=== PATIENT | female | born 1975 | race Caucasian/White ===

== ENCOUNTER 2020-06-15 12:17 | Emergency (ER) | payer OTHER, SELFPAY ==
[2020-06-15] VITALS (30 sets, daily range): BP systolic 94–117; BP diastolic 50–65; PULSE 84–102; RESP 14–64; TEMP 36.8; O2SAT 90–98; BMI 17.8
--- NOTE | 2020-06-15 13:00 | ED_ITS ---
HPI - Psych <Meenakshi High DO - Last Filed: 06/17/20 07:48> General Chief Complaint: Psychiatric Symptoms Stated Complaint: TOOK A BUNCH OF PILLS AND DRUGS Time Seen by Provider: 06/15/20 12:46 Source: patient Mode of arrival: Wheelchair Limitations: no limitations History of Present Illness HPI Narrative: This is a 44-year-old female who states she took a bunch of pills drugs prior to arrival. She states she used methamphetamine at the local gas station and just before coming into the ER took a large number of pills in her car. She is on sure of the exact timing as she states that she has been very confused lately secondary to her schizophrenia and being unaware of time passing. She states she took an entire bottle of Benadryl, Seroquel and Minipress. She does have trazodone, Benadryl and naltrexone which she states she did not take the naltrexone. She does not have a bottle of Seroquel with her. Patient states she is schizophrenic, she states the voices are present hav e been telling her to hurt herself. She has attempted to harm herself in the past. She states she took the pills to try to stop the voices. She states she does not wish to right now but she did earlier. She states she also has a history of shaking and is in process of potentially being diagnosed with Parkinson's. 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 She does use tobacco, she denies alcohol. She denies other illicit drugs. Related Data Allergies Allergy/AdvReac Type Severity Reaction Status Date / Time Sulfa (Sulfonamide Allergy Verified 06/15/20 12:34 Antibiotics) Review of Systems <Meenakshi High DO - Last Filed: 06/17/20 07:48> Review of Systems ROS Unobtainable: All systems reviewed & are unremarkable except as noted in HPI and below Patient History <Meenakshi High DO - Last Filed: 06/17/20 07:48> Medical History (Updated 06/16/20 @ 17:39 by Betty Lundy DO) Schizophrenia Social History Smoking Status: Current every day smoker Smoking Status: Current every day smoker alcohol intake frequency: holidays/special occasions only Substance Use Type: methamphetamine Exam <Meenakshi High DO - Last Filed: 06/17/20 07:48> Narrative Exam Narrative: GENERAL: Alert and oriented x three, thin female in moderate distress. Patient appears anxious. HEENT: Head normocephalic, atraumatic, EOMI, pupils reactive, face symmetric, moist mucous membranes NECK: Supple, full range of motion CARDIOVASCULAR: Regular rate and rhythm without murmurs, rubs or gallops. RESPIRATORY: Breath sounds equal bilaterally, no wheezes rales or rhonchi. No tachypnea accessory muscle use. ABDOMEN: Soft, nontender. Normoactive bowel sounds all 4 quadrants. No guarding or rebound, rigidity, no mass : No CVA tenderness EXTREMITIES: Normal range of motion, no clubbing or edema. Neurovascularly intact NEUROLOGICAL: Cranial nerves II through XII grossly intact. Moving all extremities. Mild tremor. SKIN: Warm, dry, no petechiae, no rashes or lesions. Initial Vital Signs Initial Vital Signs: Vital Signs Temperature 98.3 F 06/15/20 12:35 Pulse Rate 100 H 06/15/20 12:35 Respiratory Rate 15 06/15/20 12:35 Blood Pressure 117/65 06/15/20 12:35 Pulse Oximetry 98 06/15/20 12:35 <Fidel Galan, DO - Last Filed: 06/16/20 21:07> Initial Vital Signs Initial Vital Signs: Vital Signs Temperature 98.3 F 06/15/20 12:35 Pulse Rate 100 H 06/15/20 12:35 Respiratory Rate 15 06/15/20 12:35 Blood Pressure 117/65 06/15/20 12:35 Pulse Oximetry 98 06/15/20 12:35 <Betty Lundy, DO - Last Filed: 06/16/20 17:39> Initial Vital Signs Initial Vital Signs: Vital Signs Temperature 98.3 F 06/15/20 12:35 Pulse Rate 100 H 06/15/20 12:35 Respiratory Rate 15 06/15/20 12:35 Blood Pressure 117/65 06/15/20 12:35 Pulse Oximetry 98 06/15/20 12:35 Course <Meenakshi High DO - Last Filed: 06/17/20 07:48> Orders Ordered: Discontinued Medications Charcoal (Activated Charcoal 50 Gm/240 Ml) 50 gm PO NOW ONE Stop: 06/15/20 12:56 Last Admin: 06/15/20 13:39 Dose: Not Given Documented by: REYNA Charcoal/Sorbitol (Activated Charcoal/Sorbit 50 Gm/240 Ml) 50 gm PO NOW ONE Stop: 06/15/20 12:44 Last Admin: 06/15/20 13:39 Dose: 50 gm Documented by: REYNA Sodium Chloride (Normal Saline 0.9%) 1,000 mls @ 150 mls/hr IV CONT JAYDEN Last Infusion: 06/15/20 18:25 Dose: 0 mls/hr Documented by: Admin: 06/15/20 15:14 Dose: 150 mls/hr Documented by: ROBERT Sodium Chloride (Normal Saline 0.9%) 1,000 mls @ 1,000 mls/hr IV BOLUS ONE Stop: 06/15/20 17:22 Last Infusion: 06/15/20 22:02 Dose: 0 mls/hr Documented by: Admin: 06/15/20 19:44 Dose: 1,000 mls/hr Documented by: JIMMY Ceftriaxone Sodium/Dextrose (Rocephin) 1 gm in 50 mls @ 100 mls/hr IV NOW ONE Stop: 06/15/20 20:04 Last Infusion: 06/15/20 20:28 Dose: 0 mls/hr Documented by: Admin: 06/15/20 19:45 Dose: 100 mls/hr Documented by: JIMMY Nicotine (Nicotine 21 Mg Patch) 21 mg TOP NOW ONE Stop: 06/15/20 15:20 Last Admin: 06/15/20 15:57 Dose: 21 mg Documented by: BTONER Reevaluation(s) Time: 16:15 Reevaluation #2: Patient sleeping but easily awakens to verbal stimuli, BP in pressures in 90's. Time: 18:30 Consultations Consultation #1: Poison control. Discussed medications we have available, dosages patient is believed to have ingested and time frame. EKG and labs reviewed, vitals patient has had some hypotension in department. Time: 16:14 Vital Signs Vital signs: Vital Signs - 8 hr 06/16/20 13:27 06/16/20 16:53 Pulse Rate 86 82 Respiratory Rate 20 18 Blood Pressure 110/54 L 110/54 L Pulse Oximetry 98 95 <Fidel Adama, DO - Last Filed: 06/16/20 21:07> Course Course Narrative: Patient received in sign-out from Dr. High. I performed an independent history and physical and have no significant additions. The patient is resting comfortably and awaiting social Work in the morning Orders Ordered: Discontinued Medications Charcoal (Activated Charcoal 50 Gm/240 Ml) 50 gm PO NOW ONE Stop: 06/15/20 12:56 Last Admin: 06/15/20 13:39 Dose: Not Given Documented by: REYNA Charcoal/Sorbitol (Activated Charcoal/Sorbit 50 Gm/240 Ml) 50 gm PO NOW ONE Stop: 06/15/20 12:44 Last Admin: 06/15/20 13:39 Dose: 50 gm Documented by: OTILIOO Sodium Chloride (Normal Saline 0.9%) 1,000 mls @ 150 mls/hr IV CONT JAYDEN Last Infusion: 06/15/20 18:25 Dose: 0 mls/hr Documented by: Admin: 06/15/20 15:14 Dose: 150 mls/hr Documented by: NIKOTEM Sodium Chloride (Normal Saline 0.9%) 1,000 mls @ 1,000 mls/hr IV BOLUS ONE Stop: 06/15/20 17:22 Last Infusion: 06/15/20 22:02 Dose: 0 mls/hr Documented by: Admin: 06/15/20 19:44 Dose: 1,000 mls/hr Documented by: MACKONETosin Ceftriaxone Sodium/Dextrose (Rocephin) 1 gm in 50 mls @ 100 mls/hr IV NOW ONE Stop: 06/15/20 20:04 Last Infusion: 06/15/20 20:28 Dose: 0 mls/hr Documented by: Admin: 06/15/20 19:45 Dose: 100 mls/hr Documented by: JIMMY Nicotine (Nicotine 21 Mg Patch) 21 mg TOP NOW ONE Stop: 06/15/20 15:20 Last Admin: 06/15/20 15:57 Dose: 21 mg Documented by: BTONER Vital Signs Vital signs: Vital Signs - 8 hr 06/16/20 13:27 06/16/20 16:53 Pulse Rate 86 82 Respiratory Rate 20 18 Blood Pressure 110/54 L 110/54 L Pulse Oximetry 98 95 <Betty Lundy DO - Last Filed: 06/16/20 17:39> Orders Ordered: Discontinued Medications Charcoal (Activated Charcoal 50 Gm/240 Ml) 50 gm PO NOW ONE Stop: 06/15/20 12:56 Last Admin: 06/15/20 13:39 Dose: Not Given Documented by: REYNA Charcoal/Sorbitol (Activated Charcoal/Sorbit 50 Gm/240 Ml) 50 gm PO NOW ONE Stop: 06/15/20 12:44 Last Admin: 06/15/20 13:39 Dose: 50 gm Documented by: REYNA Sodium Chloride (Normal Saline 0.9%) 1,000 mls @ 150 mls/hr IV CONT JAYDEN Last Infusion: 06/15/20 18:25 Dose: 0 mls/hr Documented by: Admin: 06/15/20 15:14 Dose: 150 mls/hr Documented by: NIKOTEM Sodium Chloride (Normal Saline 0.9%) 1,000 mls @ 1,000 mls/hr IV BOLUS ONE Stop: 06/15/20 17:22 Last Infusion: 06/15/20 22:02 Dose: 0 mls/hr Documented by: Admin: 06/15/20 19:44 Dose: 1,000 mls/hr Documented by: JIMMY Ceftriaxone Sodium/Dextrose (Rocephin) 1 gm in 50 mls @ 100 mls/hr IV NOW ONE Stop: 06/15/20 20:04 Last Infusion: 06/15/20 20:28 Dose: 0 mls/hr Documented by: Admin: 06/15/20 19:45 Dose: 100 mls/hr Documented by: BTONER Nicotine (Nicotine 21 Mg Patch) 21 mg TOP NOW ONE Stop: 06/15/20 15:20 Last Admin: 06/15/20 15:57 Dose: 21 mg Documented by: BTONER Vital Signs Vital signs: Vital Signs - 8 hr 06/16/20 13:27 06/16/20 16:53 Pulse Rate 86 82 Respiratory Rate 20 18 Blood Pressure 110/54 L 110/54 L Pulse Oximetry 98 95 MDM - Psych <Meenakshi High DO - Last Filed: 06/17/20 07:48> Lab Data Attestation: I reviewed the patient's lab results. Result diagrams: 06/15/20 14:45 06/15/20 14:45 Labs: Lab Results 06/15/20 06/15/20 06/15/20 Range/Units 12:57 12:57 14:45 WBC 13.4 H (4.5-11.0) X10^3/uL RBC 4.14 (4.0-5.2) X10^6/uL Hgb 9.6 L (12.0-16.0) g/dL Hct 30.7 L (36-46) % MCV 74.3 L (80-100) fL MCH 23.1 L (26-34) PG MCHC 31.1 (30-36) % RDW 19.8 H (11.6-14.8) % Plt Count 371 (150-400) X10^3/uL Neut % (Auto) 69.7 (50-75) % Lymph % (Auto) 21.2 L (25-40) % [place] % (Auto) 6.1 (3-14) % Eos % (Auto) 2.1 (2-4) % Baso % (Auto) 0.9 (0-2) % Neut # (Auto) 9400 H (2131-0372) /uL Lymph # (Auto) 2900 (9181-8096) /uL [place] # (Auto) 800 (0-900) /uL Eos # (Auto) 300 (0-450) /uL Baso # (Auto) 100 (0-100) /uL Sodium (137-145) mmol/L Potassium (3.4-5.1) mmol/L Chloride (98-107) mmol/L Carbon Dioxide (22-32) mmol/L BUN (7-17) mg/dL Creatinine (0.52-1.04) mg/dL Estimated GFR (>60) mL/min BUN/Creatinine Ratio (6-22) Glucose (70-100) mg/dL Lactate (0.7-2.1) mmol/L Calcium (8.4-10.2) mg/dL Total Bilirubin (0.2-1.3) mg/dL Conjugated Bilirubin (0.0-0.3) md/dL Unconjugated Bilirubin (0.0-1.1) mg/dL AST (14-36) IU/L ALT (<35) IU/L Alkaline Phosphatase (38-126) U/L Total Protein (6.3-8.2) g/dL Albumin (3.5-5.0) g/dL Globulin (1.7-4.1) g/dL Albumin/Globulin Ratio (1.0-2.8) Urine RBC 0-1/hpf (0-5/HPF) Urine WBC >100/hpf H (0-5/HPF) Ur Squamous Epith Cells 1-5 /hpf (0-5/HPF) Amorphous Sediment 1+ Urine Bacteria Many (>30) H (None) Urine Mucus 1+ H (Negative) Ur Culture Indicated? Specimen cultured Salicylates (<20) mg/dL U Opiates 300ng/mL cut Negative (Negative) Ur Oxycodone Screen Negative (Negative) Urine Methadone Screen Negative (Negative) Acetaminophen (10-30) ug/mL Ur Barbiturates Screen Negative (Negative) U Tricyclic Antidepress Negative (Negative) Ur Phencyclidine Scrn Negative (Negative) Ur Amphetamines Screen Positive H (Negative) U Methamphetamines Scrn Positive H (Negative) Ur MDMA Scrn (Ecstasy) Negative (Negative) U Benzodiazepines Scrn Negative (Negative) Urine Cocaine Screen Negative (Negative) U Marijuana (THC) Screen Negative (Negative) Ethyl Alcohol ( - 10) mg/dL COVID-19 PCR (Negative) 06/15/20 06/15/20 06/15/20 Range/Units 14:45 14:45 15:15 WBC (4.5-11.0) X10^3/uL RBC (4.0-5.2) X10^6/uL Hgb (12.0-16.0) g/dL Hct (36-46) % MCV (80-100) fL MCH (26-34) PG MCHC (30-36) % RDW (11.6-14.8) % Plt Count (150-400) X10^3/uL Neut % (Auto) (50-75) % Lymph % (Auto) (25-40) % [place] % (Auto) (3-14) % Eos % (Auto) (2-4) % Baso % (Auto) (0-2) % Neut # (Auto) (1695-2535) /uL Lymph # (Auto) (0680-2492) /uL [place] # (Auto) (0-900) /uL Eos # (Auto) (0-450) /uL Baso # (Auto) (0-100) /uL Sodium 139 (137-145) mmol/L Potassium 3.7 (3.4-5.1) mmol/L Chloride 107 (98-107) mmol/L Carbon Dioxide 26 (22-32) mmol/L BUN 14 (7-17) mg/dL Creatinine 0.59 (0.52-1.04) mg/dL Estimated GFR > 60.0 (>60) mL/min BUN/Creatinine Ratio 23.7 H (6-22) Glucose 86 (70-100) mg/dL Lactate 1.7 (0.7-2.1) mmol/L Calcium 9.0 (8.4-10.2) mg/dL Total Bilirubin 0.3 (0.2-1.3) mg/dL Conjugated Bilirubin 0.0 (0.0-0.3) md/dL Unconjugated Bilirubin 0.2 (0.0-1.1) mg/dL AST 16 (14-36) IU/L ALT 11 (<35) IU/L Alkaline Phosphatase 77 (38-126) U/L Total Protein 6.7 (6.3-8.2) g/dL Albumin 3.8 (3.5-5.0) g/dL Globulin 2.9 (1.7-4.1) g/dL Albumin/Globulin Ratio 1.3 (1.0-2.8) Urine RBC (0-5/HPF) Urine WBC (0-5/HPF) Ur Squamous Epith Cells (0-5/HPF) Amorphous Sediment Urine Bacteria (None) Urine Mucus (Negative) Ur Culture Indicated? Salicylates < 1.0 (<20) mg/dL U Opiates 300ng/mL cut (Negative) Ur Oxycodone Screen (Negative) Urine Methadone Screen (Negative) Acetaminophen < 10 L (10-30) ug/mL Ur Barbiturates Screen (Negative) U Tricyclic Antidepress (Negative) Ur Phencyclidine Scrn (Negative) Ur Amphetamines Screen (Negative) U Methamphetamines Scrn (Negative) Ur MDMA Scrn (Ecstasy) (Negative) U Benzodiazepines Scrn (Negative) Urine Cocaine Screen (Negative) U Marijuana (THC) Screen (Negative) Ethyl Alcohol < 10 ( - 10) mg/dL COVID-19 PCR Negative (Negative) Point of Care Testing Test Results Negative Urine Dip Bedside Urine Glucose Negative Bedside Urine Bilirubin + 1 Bedside Urine Ketone - Negative Urine Specific [place] 1.030 Bedside Urine Occult Blood + Bedside Urine pH 6.0 Bedside Urine Protein + 30 Bedside Urine Urobilinogen - Negative Bedside Urine Nitrite - Negative Bedside Urine Leukocytes ++ 125 Esterase ECG Data Attestation: I personally reviewed and interpreted this ECG as follows: Interpretation: S rhythm rate of 99, P are 140, QRS 98, QTC of 430. Nonspecific change. MDM Narrative Medical decision making narrative: Patient comes in with intentional ingestion of polysubstance including Seroquel, trazodone, prazosin, Benadryl and methamphetamine. Plan to monitor patient, poison control recommends 12 hours as we do not know if circles extended release or not. 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 Treatment would be fluids, benzos as needed, patient might need a sodium bicarb if QRS is greater than 110 and would recommend checking Mag and electrolytes and optimizing the if QTC is greater than 500. Patient has anemia, electrolytes are normal, Tylenol, salicylate and alcohol are negative with positive amphetamine and methamphetamines consistent with patient history Patient is covid negative. She is signed out to Dr. Galan while awaiting medical clearance. Social work has been consulted. <Fidel Galan, DO - Last Filed: 06/16/20 21:07> Lab Data Labs: Lab Results 06/15/20 06/15/20 06/15/20 Range/Units 12:57 12:57 14:45 WBC 13.4 H (4.5-11.0) X10^3/uL RBC 4.14 (4.0-5.2) X10^6/uL Hgb 9.6 L (12.0-16.0) g/dL Hct 30.7 L (36-46) % MCV 74.3 L (80-100) fL MCH 23.1 L (26-34) PG MCHC 31.1 (30-36) % RDW 19.8 H (11.6-14.8) % Plt Count 371 (150-400) X10^3/uL Neut % (Auto) 69.7 (50-75) % Lymph % (Auto) 21.2 L (25-40) % [place] % (Auto) 6.1 (3-14) % Eos % (Auto) 2.1 (2-4) % Baso % (Auto) 0.9 (0-2) % Neut # (Auto) 9400 H (3244-9883) /uL Lymph # (Auto) 2900 (9297-7647) /uL [place] # (Auto) 800 (0-900) /uL Eos # (Auto) 300 (0-450) /uL Baso # (Auto) 100 (0-100) /uL Sodium (137-145) mmol/L Potassium (3.4-5.1) mmol/L Chloride (98-107) mmol/L Carbon Dioxide (22-32) mmol/L BUN (7-17) mg/dL Creatinine (0.52-1.04) mg/dL Estimated GFR (>60) mL/min BUN/Creatinine Ratio (6-22) Glucose (70-100) mg/dL Lactate (0.7-2.1) mmol/L Calcium (8.4-10.2) mg/dL Total Bilirubin (0.2-1.3) mg/dL Conjugated Bilirubin (0.0-0.3) md/dL Unconjugated Bilirubin (0.0-1.1) mg/dL AST (14-36) IU/L ALT (<35) IU/L Alkaline Phosphatase (38-126) U/L Total Protein (6.3-8.2) g/dL Albumin (3.5-5.0) g/dL Globulin (1.7-4.1) g/dL Albumin/Globulin Ratio (1.0-2.8) Urine RBC 0-1/hpf (0-5/HPF) Urine WBC >100/hpf H (0-5/HPF) Ur Squamous Epith Cells 1-5 /hpf (0-5/HPF) Amorphous Sediment 1+ Urine Bacteria Many (>30) H (None) Urine Mucus 1+ H (Negative) Ur Culture Indicated? Specimen cultured Salicylates (<20) mg/dL U Opiates 300ng/mL cut Negative (Negative) Ur Oxycodone Screen Negative (Negative) Urine Methadone Screen Negative (Negative) Acetaminophen (10-30) ug/mL Ur Barbiturates Screen Negative (Negative) U Tricyclic Antidepress Negative (Negative) Ur Phencyclidine Scrn Negative (Negative) Ur Amphetamines Screen Positive H (Negative) U Methamphetamines Scrn Positive H (Negative) Ur MDMA Scrn (Ecstasy) Negative (Negative) U Benzodiazepines Scrn Negative (Negative) Urine Cocaine Screen Negative (Negative) U Marijuana (THC) Screen Negative (Negative) Ethyl Alcohol ( - 10) mg/dL COVID-19 PCR (Negative) 06/15/20 06/15/20 06/15/20 Range/Units 14:45 14:45 15:15 WBC (4.5-11.0) X10^3/uL RBC (4.0-5.2) X10^6/uL Hgb (12.0-16.0) g/dL Hct (36-46) % MCV (80-100) fL MCH (26-34) PG MCHC (30-36) % RDW (11.6-14.8) % Plt Count (150-400) X10^3/uL Neut % (Auto) (50-75) % Lymph % (Auto) (25-40) % [place] % (Auto) (3-14) % Eos % (Auto) (2-4) % Baso % (Auto) (0-2) % Neut # (Auto) (2535-6409) /uL Lymph # (Auto) (9034-5965) /uL [place] # (Auto) (0-900) /uL Eos # (Auto) (0-450) /uL Baso # (Auto) (0-100) /uL Sodium 139 (137-145) mmol/L Potassium 3.7 (3.4-5.1) mmol/L Chloride 107 (98-107) mmol/L Carbon Dioxide 26 (22-32) mmol/L BUN 14 (7-17) mg/dL Creatinine 0.59 (0.52-1.04) mg/dL Estimated GFR > 60.0 (>60) mL/min BUN/Creatinine Ratio 23.7 H (6-22) Glucose 86 (70-100) mg/dL Lactate 1.7 (0.7-2.1) mmol/L Calcium 9.0 (8.4-10.2) mg/dL Total Bilirubin 0.3 (0.2-1.3) mg/dL Conjugated Bilirubin 0.0 (0.0-0.3) md/dL Unconjugated Bilirubin 0.2 (0.0-1.1) mg/dL AST 16 (14-36) IU/L ALT 11 (<35) IU/L Alkaline Phosphatase 77 (38-126) U/L Total Protein 6.7 (6.3-8.2) g/dL Albumin 3.8 (3.5-5.0) g/dL Globulin 2.9 (1.7-4.1) g/dL Albumin/Globulin Ratio 1.3 (1.0-2.8) Urine RBC (0-5/HPF) Urine WBC (0-5/HPF) Ur Squamous Epith Cells (0-5/HPF) Amorphous Sediment Urine Bacteria (None) Urine Mucus (Negative) Ur Culture Indicated? Salicylates < 1.0 (<20) mg/dL U Opiates 300ng/mL cut (Negative) Ur Oxycodone Screen (Negative) Urine Methadone Screen (Negative) Acetaminophen < 10 L (10-30) ug/mL Ur Barbiturates Screen (Negative) U Tricyclic Antidepress (Negative) Ur Phencyclidine Scrn (Negative) Ur Amphetamines Screen (Negative) U Methamphetamines Scrn (Negative) Ur MDMA Scrn (Ecstasy) (Negative) U Benzodiazepines Scrn (Negative) Urine Cocaine Screen (Negative) U Marijuana (THC) Screen (Negative) Ethyl Alcohol < 10 ( - 10) mg/dL COVID-19 PCR Negative (Negative) Point of Care Testing Test Results Negative Urine Dip Bedside Urine Glucose Negative Bedside Urine Bilirubin + 1 Bedside Urine Ketone - Negative Urine Specific [place] 1.030 Bedside Urine Occult Blood + Bedside Urine pH 6.0 Bedside Urine Protein + 30 Bedside Urine Urobilinogen - Negative Bedside Urine Nitrite - Negative Bedside Urine Leukocytes ++ 125 Esterase <Betty Lundy, DO - Last Filed: 06/16/20 17:39> Lab Data Labs: Lab Results 06/15/20 06/15/20 06/15/20 Range/Units 12:57 12:57 14:45 WBC 13.4 H (4.5-11.0) X10^3/uL RBC 4.14 (4.0-5.2) X10^6/uL Hgb 9.6 L (12.0-16.0) g/dL Hct 30.7 L (36-46) % MCV 74.3 L (80-100) fL MCH 23.1 L (26-34) PG MCHC 31.1 (30-36) % RDW 19.8 H (11.6-14.8) % Plt Count 371 (150-400) X10^3/uL Neut % (Auto) 69.7 (50-75) % Lymph % (Auto) 21.2 L (25-40) % [place] % (Auto) 6.1 (3-14) % Eos % (Auto) 2.1 (2-4) % Baso % (Auto) 0.9 (0-2) % Neut # (Auto) 9400 H (6718-4795) /uL Lymph # (Auto) 2900 (1333-4491) /uL [place] # (Auto) 800 (0-900) /uL Eos # (Auto) 300 (0-450) /uL Baso # (Auto) 100 (0-100) /uL Sodium (137-145) mmol/L Potassium (3.4-5.1) mmol/L Chloride (98-107) mmol/L Carbon Dioxide (22-32) mmol/L BUN (7-17) mg/dL Creatinine (0.52-1.04) mg/dL Estimated GFR (>60) mL/min BUN/Creatinine Ratio (6-22) Glucose (70-100) mg/dL Lactate (0.7-2.1) mmol/L Calcium (8.4-10.2) mg/dL Total Bilirubin (0.2-1.3) mg/dL Conjugated Bilirubin (0.0-0.3) md/dL Unconjugated Bilirubin (0.0-1.1) mg/dL AST (14-36) IU/L ALT (<35) IU/L Alkaline Phosphatase (38-126) U/L Total Protein (6.3-8.2) g/dL Albumin (3.5-5.0) g/dL Globulin (1.7-4.1) g/dL Albumin/Globulin Ratio (1.0-2.8) Urine RBC 0-1/hpf (0-5/HPF) Urine WBC >100/hpf H (0-5/HPF) Ur Squamous Epith Cells 1-5 /hpf (0-5/HPF) Amorphous Sediment 1+ Urine Bacteria Many (>30) H (None) Urine Mucus 1+ H (Negative) Ur Culture Indicated? Specimen cultured Salicylates (<20) mg/dL U Opiates 300ng/mL cut Negative (Negative) Ur Oxycodone Screen Negative (Negative) Urine Methadone Screen Negative (Negative) Acetaminophen (10-30) ug/mL Ur Barbiturates Screen Negative (Negative) U Tricyclic Antidepress Negative (Negative) Ur Phencyclidine Scrn Negative (Negative) Ur Amphetamines Screen Positive H (Negative) U Methamphetamines Scrn Positive H (Negative) Ur MDMA Scrn (Ecstasy) Negative (Negative) U Benzodiazepines Scrn Negative (Negative) Urine Cocaine Screen Negative (Negative) U Marijuana (THC) Screen Negative (Negative) Ethyl Alcohol ( - 10) mg/dL COVID-19 PCR (Negative) 06/15/20 06/15/20 06/15/20 Range/Units 14:45 14:45 15:15 WBC (4.5-11.0) X10^3/uL RBC (4.0-5.2) X10^6/uL Hgb (12.0-16.0) g/dL Hct (36-46) % MCV (80-100) fL MCH (26-34) PG MCHC (30-36) % RDW (11.6-14.8) % Plt Count (150-400) X10^3/uL Neut % (Auto) (50-75) % Lymph % (Auto) (25-40) % [place] % (Auto) (3-14) % Eos % (Auto) (2-4) % Baso % (Auto) (0-2) % Neut # (Auto) (4256-7130) /uL Lymph # (Auto) (7664-9044) /uL [place] # (Auto) (0-900) /uL Eos # (Auto) (0-450) /uL Baso # (Auto) (0-100) /uL Sodium 139 (137-145) mmol/L Potassium 3.7 (3.4-5.1) mmol/L Chloride 107 (98-107) mmol/L Carbon Dioxide 26 (22-32) mmol/L BUN 14 (7-17) mg/dL Creatinine 0.59 (0.52-1.04) mg/dL Estimated GFR > 60.0 (>60) mL/min BUN/Creatinine Ratio 23.7 H (6-22) Glucose 86 (70-100) mg/dL Lactate 1.7 (0.7-2.1) mmol/L Calcium 9.0 (8.4-10.2) mg/dL Total Bilirubin 0.3 (0.2-1.3) mg/dL Conjugated Bilirubin 0.0 (0.0-0.3) md/dL Unconjugated Bilirubin 0.2 (0.0-1.1) mg/dL AST 16 (14-36) IU/L ALT 11 (<35) IU/L Alkaline Phosphatase 77 (38-126) U/L Total Protein 6.7 (6.3-8.2) g/dL Albumin 3.8 (3.5-5.0) g/dL Globulin 2.9 (1.7-4.1) g/dL Albumin/Globulin Ratio 1.3 (1.0-2.8) Urine RBC (0-5/HPF) Urine WBC (0-5/HPF) Ur Squamous Epith Cells (0-5/HPF) Amorphous Sediment Urine Bacteria (None) Urine Mucus (Negative) Ur Culture Indicated? Salicylates < 1.0 (<20) mg/dL U Opiates 300ng/mL cut (Negative) Ur Oxycodone Screen (Negative) Urine Methadone Screen (Negative) Acetaminophen < 10 L (10-30) ug/mL Ur Barbiturates Screen (Negative) U Tricyclic Antidepress (Negative) Ur Phencyclidine Scrn (Negative) Ur Amphetamines Screen (Negative) U Methamphetamines Scrn (Negative) Ur MDMA Scrn (Ecstasy) (Negative) U Benzodiazepines Scrn (Negative) Urine Cocaine Screen (Negative) U Marijuana (THC) Screen (Negative) Ethyl Alcohol < 10 ( - 10) mg/dL COVID-19 PCR Negative (Negative) Point of Care Testing Test Results Negative Urine Dip Bedside Urine Glucose Negative Bedside Urine Bilirubin + 1 Bedside Urine Ketone - Negative Urine Specific [place] 1.030 Bedside Urine Occult Blood + Bedside Urine pH 6.0 Bedside Urine Protein + 30 Bedside Urine Urobilinogen - Negative Bedside Urine Nitrite - Negative Bedside Urine Leukocytes ++ 125 Esterase MDM Narrative Medical decision making narrative: Patient signed out to me by Dr. Galan I have seen and evaluated patient myself. She is awake alert and oriented moved from room 1 to room 13. She remains suicidal but is voluntary. Evaluated by [employer]. Placed at [facility]. Discharge Plan Departure Patient Disposition: Xfer Psychiatric Hosp Clinical Impression: Overdose, Schizophrenia, Suicidal ideation <Fidel Galna DO - Last Filed: 06/16/20 21:07> Cosign ED Attending Cosignature Attestation: I was immediately available in the department for consultation. This documentation has been reviewed and I agree with assessment and plan. Supervised by Fidel Galan DO
[2020-06-15 13:16] LABS: Amorphous Sediment Urine 1+; RBC Urine 0-1/HPF (0-5/HPF); Squamous Epithelial Cell Urine 1-5 /HPF (0-5/HPF); WBC Urine >100/HPF (0-5/HPF)
[2020-06-15 13:17] LABS: Bacteria Urine Many (>30); Culture Indicated Urine Specimen Cultured; Mucus Urine 1+ (Negative)
[2020-06-15] MEDS: ACTIVATED CHARCOAL/SORBIT 50 GM/240 ML PO (13:39)
--- NOTE | 2020-06-15 13:56 | PC.NURSE ---
doreen Hunt on Pt 1:1 @ 13:50. Pt is talkative and sitting up in bed with emesis bag
--- NOTE | 2020-06-15 14:36 | PC.NURSE ---
Nurse speaking with Pt and drawing blood
[2020-06-15 14:49] LABS: Add Manual Diff / Slide Review NO; Basophils Absolute Auto 100 /uL (0-100); Basophils Percent Auto 0.9 % (0-2); Eosinophils Absolute Auto 300 /uL (0-450); Eosinophils Percent Auto 2.1 % (2-4); Hematocrit 30.7 % (36-46); Hemoglobin 9.6 g/dL (12.0-16.0); Lymphocytes Absolute Auto 2900 /uL (1100-4500); Lymphocytes Percent Auto 21.2 % (25-40); Mean Corpuscular HGB Conc 31.1 % (30-36); Mean Corpuscular Hemoglobin 23.1 PG (26-34); Mean Corpuscular Volume 74.3 fL (80-100); Monocytes Absolute Auto 800 /uL (0-900); Monocytes Percent Auto 6.1 % (3-14); Neutrophils Absolute Auto 9400 /uL (1500-7000); Neutrophils Percent Auto 69.7 % (50-75); Platelet Count 371 X10^3/uL (150-400); Red Blood Cell Count 4.14 X10^6/uL (4.0-5.2); Red Cell Distribution Width 19.8 % (11.6-14.8); White Blood Cell Count 13.4 X10^3/uL (4.5-11.0)
--- NOTE | 2020-06-15 14:55 | PC.NURSE ---
pt states she starting taking iv meth again last sunday and took the last bit today.
[2020-06-15 15:04] LABS: Lactate (Lactic Acid) 1.7 mmol/L (0.7-2.1)
[2020-06-15 15:06] LABS: Acetaminophen < 10 ug/mL (10-30); Alanine Aminotransferase 11 IU/L (<35); Albumin 3.8 g/dL (3.5-5.0); Albumin Globulin Ratio 1.3 (1.0-2.8); Alkaline Phosphatase 77 U/L (38-126); Aspartate Aminotransferase 16 IU/L (14-36); BUN Creatinine Ratio 23.7 (6-22); Bilirubin Total 0.3 mg/dL (0.2-1.3); Bilirubin Unconjugated 0.2 mg/dL (0.0-1.1); Blood Urea Nitrogen 14 mg/dL (7-17); Carbon Dioxide 26 mmol/L (22-32); Chloride 107 mmol/L (98-107); Estimated Glomerular Filt Rate > 60.0 mL/min (>60); Ethanol (ETOH) < 10 mg/dL; Globulin 2.9 g/dL (1.7-4.1); Glucose 86 mg/dL (70-100); HEMOLYSIS < 15 (0-50); Potassium 3.7 mmol/L (3.4-5.1); Salicylate < 1.0 mg/dL (<20); Sodium 139 mmol/L (137-145); Total Protein 6.7 g/dL (6.3-8.2)
[2020-06-15] MEDS: SODIUM CHLORIDE 0.9% 1,000 ML 150 ML IV (15:14)
[2020-06-15 15:18] LABS: Ur Creatinine Normal (Normal); Ur Specific Gravity Normal (Normal); Urine pH Normal (Normal)
[2020-06-15 15:19] LABS: UR Morphine/Opiate cutoff 300 Negative (Negative); Urine Amphetamines Positive (Negative); Urine Barbiturates Negative (Negative); Urine Benzodiazepines Negative (Negative); Urine Cocaine Negative (Negative); Urine MDMA Negative (Negative); Urine Methadone Negative (Negative); Urine Methamphetamines Positive (Negative); Urine Oxycodone Negative (Negative); Urine Phencyclidine Negative (Negative); Urine Tetrahydrocannabinol Negative (Negative); Urine Tricyclic Antidepressant Negative (Negative)
[2020-06-15 15:42] LABS: COVID19 -Nasal RAPID Negative (Negative)
[2020-06-15] MEDS: NICOTINE 21 MG PATCH TOP (15:57)
[2020-06-15] MEDS: SODIUM CHLORIDE 0.9% 1,000 ML 1000 ML IV (19:44)
[2020-06-15] MEDS: CEFTRIAXONE 1 GM/50 ML FROZ.PIGGY IV (19:45)
[2020-06-16] VITALS (19 sets, daily range): BP systolic 98–113; BP diastolic 53–73; PULSE 82–104; RESP 16–38; O2SAT 93–100
--- NOTE | 2020-06-16 00:34 | PC.NURSE ---
Patient complaining of burning and irritation when urinating. Confirmed urinalysis performed earlier and positive for leuks. Provider aware. Patient reinformed with this information. Bladder scan performed and showed post void residual of 4ml.
--- NOTE | 2020-06-16 01:12 | PC.NURSE ---
Patient provided with sandwiches and apple juice. Sitter remains at bedside.
--- NOTE | 2020-06-16 08:02 | PC.NURSE ---
Pt taken to bathroom in . moved into RM 13. Awaiting TEST DECK SUPERVISOR consult. breakfast tray ordered. pt continues to be on 1:1 observation. AAO x3. tele monitoring DC'd by Dr Lundy.
--- NOTE | 2020-06-16 13:11 | CM.SWNOTE ---
PHARMACY GENERAL MANAGER Assessment PHARMACY GENERAL MANAGER - Ase Certified Technician Assessment PHARMACY GENERAL MANAGER - Ase Certified Technician Assessment Start: 06/16/20 12:44 Freq: Status: Active Protocol: Document 06/16/20 12:44 JULISSA (Rec: 06/16/20 13:10 JULISSA [id number]) PHARMACY GENERAL MANAGER/Ase Certified Technician Assessment Time Spent with Patient Start date 06/16/20 Visit Start Time 12:15 End date 06/16/20 Visit End Time 12:40 Total time Care Management spent on 25 patient visit-in minutes Mental Health Screening Include Onset, Duration, Intensity Presenting Problem Patient presents to ED after intentional overdose. During assessment, patient reports diagnosis of schizophrenia and that one of the voices she hears has been instructing her to kill herself. Precipitating Event(s) Patient reports she has been off of much of her medication since September,. Patient's son attempted suicide on June 10, 2020. Patient Strengths Patient shows significant insight into her mental health needs, and is open about her current situation. Current Behavioral Health Provider(s) None reported. Include Facility, Provider, Ph. # Psych. Hx Mental Health and Chemical Patient endorses hearing Dependency voices since age 6, and reports hx of bipolar and schizophrenia. Patient reports multiple previous suicide attempts at instruction of one of the voices she hears. 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 Patient reports suboxone was effective in treating her substance use disorder. Family Hx of Behavioral Abuse None reported. Psychiatric Hospitalizations (date(s)/ Patient has reported many location) psychiatric hospitalizations for schizophrenia throughout her life. Last stay was at [facility], Jun 2019. Psychosocial information & Support Patient is a 44 y/o female who Systems is currently working with a local fdc for a motel stay . Patient's income comes from [employer], approx $1100/mo. Patient has been hearing voices which instruct her to do evil things since age 6. Patient has two children, and reports her daughter does not speak to her. Patient reports her ex her roughly 3 years ago but they do continue to communicate. School/Work None reported. Legal Concerns Legal Matters - Outstanding Issues None reported. Mental Status Orientation (Person/Place/Time) Oriented x3 Stated Mood ok Affect (Congruent with Mood?) Euthymic, stable, normal range , congruent with mood Thought Content - Specify/Describe Patient endorses hearing Obsessions, Delusions, Hallucinations voices and that the voices instruct her to kill herself . Patient explains that one voice- who she has named Tati instructs her to kill herself because after she dies Tati will be freed. Patient endorses hearing other voices Usually there's or two [voices]...now there are billions. Patient endorses visual hallucinations. Patient states There's a holy war going on and I see everything. No other obsessions or delusions observed or reported during assessment. Thought Processes (Npuqdmj-Zxiuxbao-Xanl Goal Directed. Cotrlelv-Nfjeinju-Symoedduja- Tbdjpjevmoamgw-Utyxmrs-Isefazwkrcef- Thought Blocking) Speech (Vqecfa-Wxin-Mowhlyt-Rapid-Soft- Normal Loud-Pressured) Motor (Fvuvfh-Xnmzyhsit-Kzjn-Other) Excessive. Patient was shaking during assessment and reports that she is in the process of exploring a possible Parkinson's diagnosis. Insight (Frzp-Kopd-Jnvk/Limited) Good Judgement (Vvur-Yguv-Cnwf/Limited) Limited Impulse Control (Adequate-Impaired) Adequate in assessment Memory (Aixsfzlez-Nphale-Umejjy, Patient reports memory Impaired-Intact) impairment, and states: I woke up and I was driving in [place] somewhere, and states that someone else is taking over my mind. Patient reports she often has periods of weeks that she cannot remember. Concentration (Intact-Impaired) Intact for assessment Attention (Intact-Impaired) Intact for assessment Behavior (Appropriate-Inappropriate) Appropriate Risk Assessment Suicidal Ideation (Plan) Yes Homicidal Ideation (Plan) No Comment Patient denies HI. Patient endorses SI and informs PHARMACY GENERAL MANAGER that one of the voices in her head is continuing to instruct her to do so. Patient explains that the voice is instructing her to leave the room and find a scalpel somewhere. Patient states it 'll be my throat next time. Intervention Intervention PHARMACY GENERAL MANAGER meets with patient and completes assessment. Patient explains hx of schizophrenia and hearing voices which instruct her to kill herself. Patient states she has been off of her medication since September of 2019 and she would like to return to a psychiatric hospital for help with medication for the visual and auditory hallucinations; to at least lower them [the voices]; they're screaming at me. PHARMACY GENERAL MANAGER and patient discuss process and patient indicates understanding. PHARMACY GENERAL MANAGER updates Dr. Lundy, who indicates understanding. Plan RA Plan PHARMACY GENERAL MANAGER will seek inpatient behavioral health placement for patient. ASIF Estrella
--- NOTE | 2020-06-16 15:27 | CM.SWNOTE ---
THREAT MONITORING ANALYST note Following assessment, THREAT MONITORING ANALYST calls [facility] seeking open bed for patient. THREAT MONITORING ANALYST speaks with Zahira, who informs THREAT MONITORING ANALYST that they do have open beds and requests clinicals. THREAT MONITORING ANALYST faxes clinicals to [facility] at 1330. THREAT MONITORING ANALYST calls [facility] at 1530 for update. THREAT MONITORING ANALYST speaks with Angelita who informs THREAT MONITORING ANALYST that patient has been accepted to [facility] and gives THREAT MONITORING ANALYST details below for transfer: Accepted for 1800 check in at [facility] 1E. Accepting provider: IVAN Renee. Nurse to Nurse [phone], ask for 1E. Intake contact Angelita. THREAT MONITORING ANALYST puts details in comments section of EMR, updates MARIZA Garcia, and Dr. Lundy. THREAT MONITORING ANALYST informs patient of acceptance. All parties remain agreeable with plan. Patient requests that THREAT MONITORING ANALYST call ex- Aubrey at [phone], as Aubrey was going to assist patient in getting belongings to bring to hospital. THREAT MONITORING ANALYST contacts Aubrey, who states he will drop off patient's belongings at [facility] following AM. THREAT MONITORING ANALYST informs patient of this. Plan: Patient to transfer to [facility] for behavioral health stabilization. ASIF Estrella
== END 2020-06-16 17:20 ==
PROVIDERS: Emergency Medicine; Emergency Provider Emergency Medicine
DX: T43.622A Poisoning by amphetamines, intentional self-harm, initial encounter (principal); R45.851 Suicidal ideations; F20.9 Schizophrenia, unspecified
CPT/HCPCS: 36415; 80053; 80076; 80305; 80320; 80329; 81003; 81015; 81025; 83605; 85025; 87077; 87086; 87186; 87635; 93005; 99284; G0480